=== PATIENT | female | born 1930 | race Caucasian/White ===

== ENCOUNTER 2016-06-01 19:13 | Emergency (ER) | payer OTHER ==
[~2016-06-01] VITALS: Ht 162.6 cm; Wt 84.4 kg
[~2016-06-01 19:13] MED LIST: ALPR0.5T3 PO; CEPH500C3 PO; CETI10 PO; CYMB30CA PO; FENT12DI T-DERMAL; HYDR-3129 PO; LEVO75TA42 PO; MEVA40TA PO; OMEP20TA OR
[2016-06-01 19:18] VITALS: BP 138/77; PULSE 82; RESP 16; TEMP 98.4; O2SAT 93
[2016-06-01] MEDS ORDERED: OMEP20TA PO (19:34)
[2016-06-01] MEDS ORDERED: ALPR1TAB3 PO (19:34)
[2016-06-01] MEDS ORDERED: HYDR-3583 PO (19:34)
[2016-06-01] MEDS ORDERED: FLUT1SPR5 EACH NARE (19:34)
[2016-06-01] MEDS ORDERED: LOVA40TA PO (19:34)
[2016-06-01] MEDS ORDERED: ATEN25TA PO (19:34)
[2016-06-01] MEDS ORDERED: HYDR12.57 PO (19:34)
[2016-06-01] MEDS ORDERED: DULO1CAP3 PO (19:34)
[2016-06-01] MEDS ORDERED: LEVO100T5 PO (19:34)
[2016-06-01] MEDS ORDERED: ZYRT10CA PO (19:34)
--- NOTE | 2016-06-01 19:49 | PD ---
HPI Chief Complaint: ENT Complaint Time Seen by Provider: 19:49 Travel History International Travel<30 days: No Contact w/Intl Traveler<30days: No Traveled to known affect area: No History of Present Illness HPI 86-year-old female presents the emergency department with 3 day history of upper respiratory symptoms including sinus congestion, postnasal drip , sore throat, and cough. Patient states she has been somewhat short of breath with exertion in the past 2 days. She has no history of wheezing or need for inhalers or nebulizers in the past. Patient states she normally gets sinusitis and was treated with azithromycin by her primary care physician. Patient is using Flonase but has had worsening symptoms in the last 3 days. Patient denies fever, chills, or chest pain. She has no significant edema. He has no nausea, vomiting, or diarrhea. Patient is allergic to Betadine, lactose and vancomycin. PFSH Past Medical History Arthritis: Yes Asthma: No Anxiety: Yes Depression: Yes Heart Rhythm Problems: No Cardiovascular Problems: Yes High Cholesterol: Yes Chest Pain: No Congestive Heart Failure: No COPD: No Cerebrovascular Accident: No Diabetes: No Diminished Hearing: Yes Endocrine: Yes Gastrointestinal Disorders: Yes GERD: Yes Genitourinary: No Hypertension: Yes Implanted Vascular Access Dvce: Yes Musculoskeletal: Yes Psychiatric: Yes Reproductive: No Respiratory: Yes Immunizations Current: Yes Migraines: No Seizures: No Sleep Apnea: No Thyroid Disease: Yes Ulcer: No Tetanus Vaccination: Unknown Influenza Vaccination: Yes ?: Not Menopausal: Yes Past Surgical History Abdominal Surgery: Yes (VERONICA) Appendectomy: Yes Body Medical Devices: LAURIE AND SCREWS BACK Cholecystectomy: Yes Gynecologic Surgery: Yes (HYSTERECTOMY) Hysterectomy: Yes Joint Replacement: Yes (DARA KNEE; LEFT HIP;RIGHT HIP 10/2011) Neurologic Surgery: Yes (LUMBAR LAMINECTOMY X 2) Pacemaker: No Other Surgery: Yes (LT ROTATOR CUFF SPINE FUSION BOWEL) Social History Alcohol Use: No Tobacco Use: No Substance Use: No Allergies-Medications (Allergen,Severity, Reaction): Coded Allergies: Betadine (Verified Allergy, Severe, Itching, 06/01/16) Lactose (Verified Allergy, Severe, BLOATING, 06/01/16) Vancomycin (Verified Allergy, Severe, Anaphylaxis, 06/01/16) "GOT HOT ALL OVER" Reported Meds & Prescriptions Reported Meds & Active Scripts Active Reported Flonase Nasal Sulphur (Fluticasone Nasal Sulphur) 50 Mcg/Act Sulphur 50 Mcg EACH NARE BID Atenolol 25 Mg Tab 25 Mg PO DAILY Zyrtec Allergy (Cetirizine HCl) 10 Mg Cap 10 Mg PO DAILY Lovastatin 40 Mg Tab 40 Mg PO DAILY Alprazolam 1 Mg Tab 1 Mg PO HS PRN Duloxetine DR (Duloxetine HCl) 60 Mg Capdr 60 Mg PO BID Omeprazole 20 Mg Tab 20 Mg PO DAILY Levothyroxine (Levothyroxine Sodium) 100 Mcg Tab 100 Mcg PO DAILY Hydrochlorothiazide 12.5 Mg Cap 12.5 Mg PO DAILY Hydrocodone-Acetaminophen 10-325 mg Tab 1 Tab PO BID PRN Review of Systems Except as stated in HPI: all other systems reviewed are Neg General / Constitutional: No: Fever, Chills Eyes: No: Visual changes HENT: Positive: Headaches, Sore Throat, Rhinitis, Rhinorrhea, Congestion, No: Nosebleed, Neck Stiffness, Neck Pain, Ear Discharge, Earache Cardiovascular: No: Chest Pain or Discomfort Respiratory: Positive: Cough, Shortness of Breath, Other (hacking cough noted.) , No: Wheezing, Sneezing, Orthopnea, Hemoptysis, Night Sweats, Pleuritic Pain Gastrointestinal: No: Nausea, Vomiting, Diarrhea, Abdominal Pain Genitourinary: No: Dysuria Musculoskeletal: No: Pain Skin: No Rash Neurologic: No: Weakness Psychiatric: No: Depression Endocrine: No: Polydipsia Hematologic/Lymphatic: No: Easy Bruising Physical Exam Narrative GENERAL: Patient appears in no obvious distress. SKIN: Warm and dry. Normal color. Normal turgor. HEAD: Atraumatic. Normocephalic. EYES: Pupils equal and round. No scleral icterus. No injection or drainage. ENT: No nasal bleeding or discharge. Mucous membranes pink and moist. TMs are clear bilaterally. Patient has moderate sinus tenderness more in the left frontal and maxillary sinuses than the right. Throat has mild erythema postnasal drip and cobblestoning present in the posterior pharynx. Airway is patent. Uvula is midline. NECK: Trachea midline. Supple and nontender. CARDIOVASCULAR: Regular rate and rhythm. No murmurs gallops or rubs. RESPIRATORY: No accessory muscle use. Coarse with mild expiratory wheeze to auscultation. Breath sounds equal bilaterally. GASTROINTESTINAL: Abdomen soft, non-tender, nondistended. Hepatic and splenic margins not palpable. MUSCULOSKELETAL: Extremities without clubbing, cyanosis, or edema. No obvious deformities. NEUROLOGICAL: Awake and alert. No obvious cranial nerve deficits. Motor grossly within normal limits. Five out of 5 muscle strength in the arms and legs. Normal speech. PSYCHIATRIC: Appropriate mood and affect; insight and judgment normal. Data Data Last Documented VS Vital Signs Date Time Temp Pulse Resp B/P Pulse Ox O2 Delivery O2 Flow Rate FiO2 06/01/16 19:18 98.4 82 16 138/77 93 Orders Azithromycin (Zithromax) (06/01/16 20:00) Chest, Pa & Lat (06/01/16 19:53) Albuterol-Ipratropium Neb (Duoneb Neb) (06/01/16 20:00) Resp Mdi/Instruction (06/01/16 20:23) MDM Medical Decision Making Medical Screen Exam Complete: Yes Emergency Medical Condition: Yes Differential Diagnosis Sinusitis. Bronchitis. CHF. Wheezing. Narrative Course Patient is medically stable at time of exam. DuoNeb, chest x-ray PA and lateral, and azithromycin 500 mg by mouth is ordered. Chest x-ray shows no acute process per radiologist. Patient felt symptomatically improved after DuoNeb. Patient was given MDI spacer training. Patient will be discharged home on azithromycin 500 mg daily for the next 5 days. Patient also given Ventolin metered-dose inhaler 2 puffs with spacer every 4-6 hours when necessary. Patient is to continue her Flonase nasal spray 2 sprays each nostril daily. Patient is also given Tessalon Perles 100 mg one every 8 hours when necessary cough. Patient should rest and push fluids and follow-up with her primary care physician in the next week to 10 days. Patient can return to emergency Department with worsening symptoms as needed. Diagnosis Primary Impression: Sinusitis Qualified Code: J01.40 - Acute non-recurrent pansinusitis Additional Impression: Acute wheezy bronchitis Referrals: Primary Care Physician Patient Instructions: Acute Bronchitis (ED), General Instructions, How to Use a Metered-Dose Inhaler and a Spacer (ED), Sinusitis (ED) Additional Instructions: Patient will be discharged home on azithromycin 500 mg daily for the next 5 days. Patient also given Ventolin metered-dose inhaler 2 puffs with spacer every 4-6 hours when necessary. Patient is to continue her Flonase nasal spray 2 sprays each nostril daily. Patient is also given Tessalon Perles 100 mg one every 8 hours when necessary cough. Patient should rest and push fluids and follow-up with her primary care physician in the next week to 10 days. Patient can return to emergency Department with worsening symptoms as needed. Med/Other Pt SpecificInfo: Prescription(s) given Disposition: 01 DISCHARGE HOME Condition: Stable Marvel Castillo Jun 01, 2016 19:49
[2016-06-01] MEDS ORDERED: RESP: ALBUTEROL 2.5 MG/IPRATROPIUM 0.5 MG NEB (SCH) INH ONE (20:00)
[2016-06-01] MEDS ORDERED: AZITHROMYCIN 250 MG TAB PO ONE (20:00)
--- NOTE | 2016-06-01 20:18 | RADHPO ---
EXAM DATE/TIME: 06/01/2016 19:58 [facility] COMPARISON: CHEST PA & LAT, February 27, 2015, 16:11. INDICATIONS : Productive cough and congestion for three days. MEDICAL HISTORY : Hypertension. SURGICAL HISTORY : Left shoulder. ENCOUNTER: Initial ACUITY: 3 days PAIN SCORE: 0/10 LOCATION: Bilateral chest FINDINGS: PA and lateral views of the chest demonstrates hyperinflation which can be seen with CO PD. No infiltrates are seen. Heart is normal in size. Tortuous thoracic aorta. The mediastinal cont ours are unremarkable. Osseous structures are intact. Left humeral prosthesis. Degenerative changes right shoulder. CONCLUSION: Hyperinflation which can be seen with COPD. No acute cardiopulmonary disease an d no evidence for an infiltrate. Morro Shelley MD on June 01, 2016 at 20:16 Board Certified Radiologist. This report was verified electronically.
[2016-06-01] MEDS ORDERED: AZIT500T2 PO (20:29)
[2016-06-01] MEDS ORDERED: VENTAER INH (20:29)
[2016-06-01] MEDS ORDERED: BENZ100 PO (20:38)
== END 2016-06-01 20:42 | disposition home or self-care (01) ==
LOC: PHEFT 19:13
DX: J32.9 Chronic sinusitis, unspecified (principal); J20.9 Acute bronchitis, unspecified; H91.90 Unspecified hearing loss, unspecified ear; K21.9 Gastro-esophageal reflux disease without esophagitis; I10 Essential (primary) hypertension; E78.00 Pure hypercholesterolemia, unspecified
CPT/HCPCS: 71020; 94664; 99283

== ENCOUNTER 2016-11-23 09:26 | Emergency (ER) | payer OTHER ==
[~2016-11-23] VITALS: Ht 162.6 cm; Wt 82.0 kg
[~2016-11-23 09:26] MED LIST changes: -ALPR0.5T3 PO; +ALPR1TAB3 PO; +ATEN25TA PO; +AZIT500T2 PO; +BENZ100 PO; -CEPH500C3 PO; -CETI10 PO; -CYMB30CA PO; +DULO1CAP3 PO; -FENT12DI T-DERMAL; +FLUT1SPR5 EACH NARE; -HYDR-3129 PO; +HYDR-3583 PO; +HYDR12.57 PO; +LEVO100T5 PO; -LEVO75TA42 PO; +LOVA40TA PO; -MEVA40TA PO; -OMEP20TA OR; +OMEP20TA PO; +VENTAER INH; +ZYRT10CA PO
[2016-11-23 09:31] VITALS: BP 111/64; PULSE 71; RESP 16; TEMP 99; O2SAT 95
[2016-11-23] MEDS ORDERED: RANI150T PO (09:53)
[2016-11-23] MEDS ORDERED: FURO20TA PO (09:53)
[2016-11-23] MEDS ORDERED: POTA10CA PO (09:53)
[2016-11-23] MEDS ORDERED: CETI10CH CHEW (09:53)
[2016-11-23] MEDS ORDERED: SERT-129 PO (09:53)
[2016-11-23] MEDS ORDERED: ONDANSETRON HCL 4 MG/2 ML VIAL IV PUSH ONE (10:15)
[2016-11-23] MEDS ORDERED: MORPHINE SULFATE 4 MG/ML INJ IV PUSH ONE (10:15)
[2016-11-23 10:21] LABS: AUTOMATED NEUTROPHIL # 5.1 TH/MM3 (1.8-7.7); BASOPHIL % 0.6 % (0.0-2.0); EOSINOPHIL # 0.1 TH/MM3 (0-0.4); EOSINOPHIL % 1.7 % (0.0-4.0); HEMATOCRIT 36.2 % (35.0-46.0); HEMO FLAGS DIFF FINAL; LYMPH % 17.5 % (9.0-44.0); LYMPHOCYTE # 1.2 TH/MM3 (1.0-4.8); MEAN CELL VOLUME 89.2 FL (80.0-100.0); MEAN CORPUSCULAR HEMOGLOBIN 29.2 PG (27.0-34.0); MEAN CORPUSCULAR HGB CONC 32.8 % (32.0-36.0); MONO % 7.7 % (0.0-8.0); NEUT % 72.5 % (16.0-70.0); PLATELET COUNT 248 TH/MM3 (150-450); RED BLOOD COUNT 4.06 MIL/MM3 (4.00-5.30); RED CELL DISTRIBUTION WIDTH 13.7 % (11.6-17.2); WHITE BLOOD COUNT 6.9 TH/MM3 (4.0-11.0)
[2016-11-23 10:25] VITALS: BP 141/63; PULSE 71; RESP 20; O2SAT 95; O2SAT 96
[2016-11-23 10:29] LABS: CHLORIDE 104 MEQ/L (98-107); POTASSIUM 3.5 MEQ/L (3.5-5.1); SODIUM (NA) 141 MEQ/L (136-145)
--- NOTE | 2016-11-23 10:31 | PD ---
HPI Chief Complaint: Musculoskeletal Complaint Time Seen by Provider: 10:02 Travel History International Travel<30 days: No Contact w/Intl Traveler<30days: No Traveled to known affect area: No History of Present Illness HPI 86-year-old female states she is having left hip pain after she had a fall a couple weeks ago. She states that it had gotten better but yesterday it got acutely worse. She went to her pain management doctor yesterday and was given pain medication but is not helping. She states that she has not had any imaging of that area because it wasn't bothering her as much yesterday. She does state that outpatient she is also getting workup for abdominal pain but given the pain in her hip has not had imaging out of her abdomen as well either. She states they put her on medication to help with her GERD and that is also not helping. She denies any other concurrent complaints at this time. Quality pain is sharp. Severity is moderate. She denies specific modifying factors other than movement. She denies any migration of the pain. PFSH Past Medical History Hx Anticoagulant Therapy: No Arthritis: Yes Asthma: No Anxiety: Yes Depression: Yes Heart Rhythm Problems: No Cardiovascular Problems: Yes High Cholesterol: Yes Chest Pain: No Congestive Heart Failure: No COPD: No Cerebrovascular Accident: No Diabetes: No Diminished Hearing: Yes Endocrine: Yes Gastrointestinal Disorders: Yes GERD: Yes Genitourinary: No Hypertension: Yes Implanted Vascular Access Dvce: Yes Musculoskeletal: Yes Psychiatric: Yes Reproductive: No Respiratory: Yes Immunizations Current: Yes Migraines: No Seizures: No Sleep Apnea: No Thyroid Disease: Yes Ulcer: No Influenza Vaccination: Yes Menopausal: Yes Past Surgical History Abdominal Surgery: Yes (VERONICA) Appendectomy: Yes Body Medical Devices: LAURIE AND SCREWS BACK Cholecystectomy: Yes Gynecologic Surgery: Yes (HYSTERECTOMY) Hysterectomy: Yes Joint Replacement: Yes (DARA KNEE; LEFT HIP;RIGHT HIP 10/2011) Neurologic Surgery: Yes (LUMBAR LAMINECTOMY X 2) Pacemaker: No Other Surgery: Yes (LT ROTATOR CUFF SPINE FUSION BOWEL) Social History Alcohol Use: No Tobacco Use: No Substance Use: No Allergies-Medications (Allergen,Severity, Reaction): Coded Allergies: lactose (Unverified Allergy, Severe, BLOATING, 11/23/16) povidone-iodine (Unverified Allergy, Severe, Itching, 11/23/16) vancomycin (Unverified Allergy, Severe, Anaphylaxis, 11/23/16) "GOT HOT ALL OVER" Reported Meds & Prescriptions Reported Meds & Active Scripts Active Reported Ranitidine (Ranitidine HCl) 150 Mg Tab 150 Mg PO HS Potassium Chloride ER (Potassium Chloride) 10 Meq Cap 10 Meq PO DAILY Sertraline (Sertraline HCl) 100 Mg Tab 100 Mg PO DAILY Furosemide 20 Mg Tab 20 Mg PO DAILY Cetirizine (Cetirizine HCl) 10 Mg Chew 10 Mg CHEW DAILY Atenolol 25 Mg Tab 25 Mg PO DAILY Lovastatin 40 Mg Tab 40 Mg PO DAILY Alprazolam 1 Mg Tab 0.5 Mg PO HS PRN Omeprazole 20 Mg Tab 40 Mg PO DAILY Levothyroxine (Levothyroxine Sodium) 100 Mcg Tab 100 Mcg PO DAILY Hydrocodone-Acetaminophen 10-325 mg Tab 1 Tab PO BID PRN Review of Systems Except as stated in HPI: all other systems reviewed are Neg Physical Exam Narrative GENERAL: Well-nourished, well-developed patient. SKIN: Warm and dry. HEAD: Normocephalic and atraumatic. EYES: No injection or drainage. ENT: No nasal drainage noted. NECK: Supple, trachea midline. CARDIOVASCULAR: Regular rate and rhythm RESPIRATORY: No increased effort. No accessory muscle use. GASTROINTESTINAL: Abdomen soft, mild tenderness diffusely, nondistended. EXTREMITIES: No edema.Pain with palpation of left lateral hip with old ecchymosis, no pain with other joints , neurovascularly intact, no lacerations over, compartments soft. BACK: Nontender without obvious deformity in midline. NEUROLOGICAL: Awake and alert. Moves all extremities and sensory grossly within normal limits. Normal speech. Data Data Last Documented VS Vital Signs Date Time Temp Pulse Resp B/P (MAP) Pulse Ox O2 Delivery O2 Flow Rate FiO2 11/23/16 11:58 73 20 141/63 (89) 95 11/23/16 09:31 99.0 Orders Orders Complete Blood Count With Diff (11/23/16 10:02) Comprehensive Metabolic Panel (11/23/16 10:02) Urinalysis - C+S If Indicated (11/23/16 10:02) Lipase (11/23/16 10:02) Ct Abd/Pel W Iv Contrast(Rout) (11/23/16 ) Iv Access Insert/Monitor (11/23/16 10:02) Oximetry (11/23/16 10:02) Morphine Inj (Morphine Inj) (11/23/16 10:15) Ondansetron Inj (Zofran Inj) (11/23/16 10:15) Hip, Uni(Ap&Lat) Wo Ap Pelvis (11/23/16 ) Iohexol 350 Inj (Omnipaque 350 Inj) (11/23/16 11:28) Ed Discharge Order (11/23/16 12:24) Labs Laboratory Tests Test 11/23/16 10:15 11/23/16 11:00 White Blood Count 6.9 TH/MM3 Red Blood Count 4.06 MIL/MM3 Hemoglobin 11.9 GM/DL Hematocrit 36.2 % Mean Corpuscular Volume 89.2 FL Mean Corpuscular Hemoglobin 29.2 PG Mean Corpuscular Hemoglobin Concent 32.8 % Red Cell Distribution Width 13.7 % Platelet Count 248 TH/MM3 Mean Platelet Volume 8.2 FL Neutrophils (%) (Auto) 72.5 % Lymphocytes (%) (Auto) 17.5 % Monocytes (%) (Auto) 7.7 % Eosinophils (%) (Auto) 1.7 % Basophils (%) (Auto) 0.6 % Neutrophils # (Auto) 5.1 TH/MM3 Lymphocytes # (Auto) 1.2 TH/MM3 Monocytes # (Auto) 0.5 TH/MM3 Eosinophils # (Auto) 0.1 TH/MM3 Basophils # (Auto) 0.0 TH/MM3 CBC Comment DIFF FINAL Differential Comment Blood Urea Nitrogen 7 MG/DL Creatinine 0.58 MG/DL Random Glucose 105 MG/DL Total Protein 6.8 GM/DL Albumin 3.2 GM/DL Calcium Level 8.2 MG/DL Alkaline Phosphatase 104 U/L Aspartate Amino Transf (AST/SGOT) 23 U/L Alanine Aminotransferase (ALT/SGPT) 25 U/L Total Bilirubin 0.7 MG/DL Sodium Level 141 MEQ/L Potassium Level 3.5 MEQ/L Chloride Level 104 MEQ/L Carbon Dioxide Level 28.1 MEQ/L Anion Gap 9 MEQ/L Estimat Glomerular Filtration Rate 99 ML/MIN Lipase 158 U/L Urine Collection Type CLEAN CATCH Urine Color STRAW Urine Turbidity CLEAR Urine pH 6.0 Urine Specific [place] 1.004 Urine Protein NEG mg/dL Urine Glucose (UA) NEG mg/dL Urine Ketones NEG mg/dL Urine Occult Blood NEG Urine Nitrite NEG Urine Bilirubin NEG Urine Leukocyte Esterase NEG Urine RBC 0-3 /hpf Urine Squamous Epithelial Cells 0-5 /hpf Microscopic Urinalysis Comment CULT NOT INDICATED Urine Collection Time 11:00 [facility] Medical Decision Making Medical Screen Exam Complete: Yes Emergency Medical Condition: Yes Medical Record Reviewed: Yes (past history confirmed) Interpretation(s) CBC & BMP Diagram 11/23/16 10:15 Total Protein 6.8, Albumin 3.2 L, Calcium Level 8.2 L, Alkaline Phosphatase 104 , Aspartate Amino Transf (AST/SGOT) 23, Alanine Aminotransferase (ALT/SGPT) 25, Total Bilirubin 0.7 Last 24 hours Impressions Hip X-Ray 11/23/16 0000 Signed Impressions: Service Date/Time: Wednesday, November 23, 2016 10:35 - CONCLUSION: No acute fracture or joint dislocation. Jake Jorge MD Abdomen/Pelvis CT 11/23/16 0000 Signed Impressions: Service Date/Time: Wednesday, November 23, 2016 11:23 - CONCLUSION: 1. Intrahepatic and extra hepatic bili dilatation is worse when compared to a 2012 exam. Common bile duct measures 21 mm. This is out of the range of what is typically seen with relating to the capacitance affect from prior cholecystectomy. I do not see an obstructing mass or stone. 2. Colonic diverticulosis without acute inflammation. 3. Prior cholecystectomy. Sam Lomeli Jr., MD Differential Diagnosis Fracture, stone, gastritis, pancreatitis Narrative Course Will check blood work, urinalysis, CT scan abdominal pelvis, left hip x-ray and dose with morphine and Zofran and reevaluate CT shows dilated bile ducts post cholecystectomy, labs are within normal limits , will discuss with primary for outpatient follow-up. Patient denies any new complaints and states that they are feeling better. all questions answered. Patient knows that follow up is incumbent on them and to return to the emergency room immediately if new or worsening symptoms develop. Patient given strict return precautions, vitals reviewed and are normal, agrees to further workup as an outpatient. Physician Communication Physician Communication dr black states patient can follow in office and she will facilitate outpatient care Diagnosis Primary Impression: Hip pain Qualified Codes: M25.552 - Pain in left hip Additional Impression: Abdominal pain Qualified Codes: R10.9 - Unspecified abdominal pain Patient Instructions: General Instructions Additional Instructions: tylenol as needed, follow with primary tommorrow, return as needed Med/Other Pt SpecificInfo: No Change to Meds Disposition: 01 DISCHARGE HOME Condition: Stable Dawn Campoverde MD Nov 23, 2016 10:31
[2016-11-23 10:33] LABS: ANION GAP 9 MEQ/L (5-15); BICARBONATE 28.1 MEQ/L (21.0-32.0); BLOOD UREA NITROGEN 7 MG/DL (7-18)
[2016-11-23 10:36] LABS: ALT (GPT) 25 U/L (10-53); AST (GOT) 23 U/L (15-37); GLOMERULAR FILTRATION RATE 99 ML/MIN (>89)
[2016-11-23 10:37] LABS: TOTAL BILIRUBIN ADULT 0.7 MG/DL (0.2-1.0)
[2016-11-23 10:38] LABS: ALKALINE PHOSPHATASE 104 U/L (45-117)
--- NOTE | 2016-11-23 10:51 | RADRPT ---
EXAM DATE/TIME: 11/23/2016 10:35 [facility] COMPARISON: No previous studies available for comparison. INDICATIONS : Left hip pain today. MEDICAL HISTORY : Hypertension. Hypercholesterolemia. SURGICAL HISTORY : Appendectomy. Cholecystectomy. Hysterectomy. Lumbar laminectomy. Left rotator cuff repair. Bilateral knee replacement. Bilateral hip replacement. ENCOUNTER: Initial ACUITY: 1 day PAIN SCORE: 6/10 LOCATION: Left hip. FINDINGS: A two view examination of the left hip was performed. There is a left hip prosthesis in place. The mchugh rdware is grossly intact. No acute fracture or joint dislocation. There is some osteopenia the bony s tructures. The soft tissues are grossly unremarkable.. CONCLUSION: No acute fracture or joint dislocation. Jake Jorge MD on November 23, 2016 at 10:49 Board Certified Radiologist. This report was verified electronically.
[2016-11-23 11:13] LABS: BLOOD, URINE NEG (NEG); GLUCOSE,URINE NEG (NEG); KETONE, URINE NEG (NEG); NITRITE,URINE NEG (NEG)
[2016-11-23 11:17] LABS: METHOD OF COLLECTION CLEAN CATCH
[2016-11-23 11:18] LABS: COMMENT (UR) CULT NOT INDICATED; CULTURE IF INDICATED CULT NOT INDICATED; RBC, URINE 0-3 /hpf (0-3); SQUAMOUS EPITHELIAL CELL URINE 0-5 /hpf (0-5); URINE COLOR STRAW (YELLW/STRAW)
[2016-11-23] MEDS ORDERED: IOHEXOL 350 MG/ML 10 ML VIAL (for RAD DIAG) IVCONTRAST ONE (11:28)
--- NOTE | 2016-11-23 11:47 | RADRPT ---
EXAM DATE/TIME: 11/23/2016 11:23 [facility] COMPARISON: CT ABDOMEN & PELVIS W CONTRAST, November 21, 2011, 23:11. INDICATIONS : Fell two weeks ago. Back pain. IV CONTRAST: 95 cc Omnipaque 350 (iohexol) IV ORAL CONTRAST: No oral contrast ingested. RADIATION DOSE: 20.40 CTDIvol (mGy) MEDICAL HISTORY : Gastroesophageal reflux disease. Hypertension. SURGICAL HISTORY : Cholecystectomy. Appendectomy.Hysterectomy. ENCOUNTER: Initial ACUITY: 2 weeks PAIN SCALE: 5/10 LOCATION: abdomen TECHNIQUE: Volumetric scanning of the abdomen and pelvis was performed. Using automated exposure control and ad justment of the mA and/or kV according to patient size, radiation dose was kept as low as reasonably achievable to obtain optimal diagnostic quality images. DICOM format image data is available electro nically for review and comparison. FINDINGS: LOWER LUNGS: The visualized lower lungs are clear. LIVER: There is intrahepatic and extrahepatic biliary dilatation that is more pronounced from the prior stud y. The common bile duct reaches a maximum diameter of 21 mm where previously measured 14 mm. It taper s at the level of the ampulla. No stone or mass observed. Gallbladder surgically absent. Portal vein is patent. SPLEEN: Normal size without lesion. PANCREAS: Within normal limits. KIDNEYS: Normal in size and shape. There is no mass, stone or hydronephrosis. ADRENAL GLANDS: Within normal limits. VASCULAR: There is no aortic aneurysm. BOWEL/MESENTERY: The stomach, small bowel, and colon demonstrate no acute abnormality. There is no free intraperitone al air or fluid. Scattered colonic diverticuli. No acute inflammation. ABDOMINAL WALL: Within normal limits. RETROPERITONEUM: There is no lymphadenopathy. BLADDER: No wall thickening or mass. REPRODUCTIVE: Within normal limits. INGUINAL: There is no lymphadenopathy or hernia. MUSCULOSKELETAL: Bilateral hip prostheses are seen. Degenerative beam hardening artifact obscuring some of the pelvis. A degenerative lumbar spine seen. Posterior fixation at L4-L5. CONCLUSION: 1. Intrahepatic and extra hepatic bili dilatation is worse when compared to a 2012 exam. Common bile duct measures 21 mm. This is out of the range of what is typically seen with relating to the capacita nce affect from prior cholecystectomy. I do not see an obstructing mass or stone. 2. Colonic diverticulosis without acute inflammation. 3. Prior cholecystectomy. Sam Lomeli Jr., MD on November 23, 2016 at 11:35 Board Certified Radiologist. This report was verified electronically.
[2016-11-23 11:58] VITALS: BP 141/63; PULSE 73; RESP 20; O2SAT 95
== END 2016-11-23 12:45 | disposition home or self-care (01) ==
LOC: PHED 09:26
DX: M25.552 Pain in left hip (principal); K21.9 Gastro-esophageal reflux disease without esophagitis; F41.9 Anxiety disorder, unspecified; F32.9 Major depressive disorder, single episode, unspecified; E78.5 Hyperlipidemia, unspecified; I10 Essential (primary) hypertension; Z79.899 Other long term (current) drug therapy; W18.30XA Fall on same level, unspecified, initial encounter
CPT/HCPCS: 73502; 74177; 80053; 81001; 83690; 85025; 96374; 96375; 99285; J2270; J2405; Q9967

== ENCOUNTER → 2016-12-22 | Outpatient (CLI) | payer OTHER ==
[~2016-12-22] MED LIST changes: -AZIT500T2 PO; -BENZ100 PO; +CETI10CH CHEW; -DULO1CAP3 PO; -FLUT1SPR5 EACH NARE; +FURO20TA PO; -HYDR12.57 PO; -OMEP20TA PO; +OMEP20TA93 PO; +POTA10CA PO; +RANI150T PO; +SERT-129 PO; -VENTAER INH; -ZYRT10CA PO
--- NOTE | 2016-12-22 10:24 | RADRPT ---
EXAM DATE/TIME: 12/22/2016 10:10 [facility] COMPARISON: BA SWALLOW W/SPEECH PATHOLOGY, May 25, 2013, 12:53. INDICATIONS : Dysphagia. FLUORO TIME: 1.4 minutes IMAGE COUNT: 1 CONTRAST: Dose as prescribed by speech pathologist. MEDICAL HISTORY : Gastroesophageal reflux disease. Hypertension. SURGICAL HISTORY : Cholecystectomy. Appendectomy.Hysterectomy. ENCOUNTER: Initial ACUITY: 1 year PAIN SCORE: 0/10 LOCATION: Esophagus. FINDINGS: A modified barium swallow was performed with speech pathology. Patient was given a variety of liquids to swallow. Mild laryngeal penetration without aspiration. For a full detailed report, see report by the speech pathologist. CONCLUSION: For a full detailed report, see report by the speech pathologist. Alessio Carrasco MD FACR on December 22, 2016 at 10:22 Board Certified Radiologist. This report was verified electronically.
== END ==
LOC: HRAD 09:48
PROVIDERS: ATTEND Internal Medicine Gastroenterology
DX: E13.10 Other specified diabetes mellitus with ketoacidosis without coma (principal)
CPT/HCPCS: 74230; 92611; G8996; G8997; G8998

== ENCOUNTER 2017-02-05 10:44 | Emergency (ER) | payer OTHER ==
[~2017-02-05] VITALS: Ht 162.6 cm; Wt 81.0 kg
[2017-02-05] MEDS ORDERED: IOHEXOL 350 MG/ML 10 ML VIAL (for RAD DIAG) IVCONTRAST ONE (10:45)
[2017-02-05 10:49] VITALS: BP 142/94; PULSE 105; RESP 16; TEMP 98.7; O2SAT 97
[2017-02-05] MEDS ORDERED: SODIUM CHLOR 0.9% 1000 ML INJ 1,000 ML IV SCH (11:09)
[2017-02-05] MEDS ORDERED: ONDANSETRON HCL 4 MG/2 ML VIAL IVP ONE (11:15)
[2017-02-05] MEDS ORDERED: SODIUM CHLORIDE 0.9% FLUSH 10 ML FLUSH IV FLUSH PRN (11:15)
--- NOTE | 2017-02-05 11:16 | PD ---
HPI Chief Complaint: GI Complaint Time Seen by Provider: 10:58 Travel History International Travel<30 days: No Contact w/Intl Traveler<30days: No Traveled to known affect area: No History of Present Illness HPI This 86-year-old female presents with complaint of abdominal pain and vomiting. She says her symptoms started last night. She has a lifelong history of lactose intolerance and she believes macaroni and cheese may have triggered her symptoms. She does have a history of multiple abdominal surgeries. She has had hysterectomy, appendectomy and cholecystectomy. In November 2011 she had a small bowel obstruction secondary to adhesions. She had surgery at that time. She had esophageal dilatation with Dr. PALMER in December 2016. The pain she is having is crampy in nature. It is intermittent. He has vomited several. Her last bowel movement was about 3 days ago PFSH Past Medical History Hx Anticoagulant Therapy: No Arthritis: Yes Asthma: No Anxiety: Yes Depression: Yes Heart Rhythm Problems: No Cardiovascular Problems: Yes High Cholesterol: Yes Chest Pain: No Congestive Heart Failure: No COPD: No Cerebrovascular Accident: No Diabetes: No Diminished Hearing: Yes Endocrine: Yes Gastrointestinal Disorders: Yes GERD: Yes Genitourinary: No Hypertension: Yes Implanted Vascular Access Dvce: Yes Musculoskeletal: Yes Psychiatric: Yes Reproductive: No Respiratory: Yes Immunizations Current: Yes Migraines: No Seizures: No Sleep Apnea: No Thyroid Disease: Yes Ulcer: No Menopausal: Yes Past Surgical History Abdominal Surgery: Yes (VERONICA) Appendectomy: Yes Body Medical Devices: LAURIE AND SCREWS BACK Cholecystectomy: Yes Gynecologic Surgery: Yes (HYSTERECTOMY) Hysterectomy: Yes Joint Replacement: Yes (DARA KNEE; LEFT HIP;RIGHT HIP 10/2011) Neurologic Surgery: Yes (LUMBAR LAMINECTOMY X 2) Pacemaker: No Other Surgery: Yes (LT ROTATOR CUFF SPINE FUSION BOWEL) Social History Alcohol Use: No Tobacco Use: No Substance Use: No Allergies-Medications (Allergen,Severity, Reaction): Coded Allergies: lactose (Verified Allergy, Severe, BLOATING, 02/05/17) povidone-iodine (Verified Allergy, Severe, Itching, 02/05/17) vancomycin (Verified Allergy, Severe, Anaphylaxis, 02/05/17) "GOT HOT ALL OVER" Reported Meds & Prescriptions Reported Meds & Active Scripts Active Reported Ranitidine (Ranitidine HCl) 150 Mg Tab 150 Mg PO HS Potassium Chloride ER (Potassium Chloride) 10 Meq Cap 10 Meq PO DAILY Sertraline (Sertraline HCl) 100 Mg Tab 100 Mg PO DAILY Furosemide 20 Mg Tab 20 Mg PO DAILY Cetirizine (Cetirizine HCl) 10 Mg Chew 10 Mg CHEW DAILY Atenolol 25 Mg Tab 25 Mg PO DAILY Lovastatin 40 Mg Tab 40 Mg PO DAILY Alprazolam 1 Mg Tab 0.5 Mg PO HS PRN Omeprazole 20 Mg Tab 20 Mg PO DAILY Levothyroxine (Levothyroxine Sodium) 100 Mcg Tab 100 Mcg PO DAILY Hydrocodone-Acetaminophen 10-325 mg Tab 1 Tab PO BID PRN Review of Systems General / Constitutional: No: Fever, Chills Eyes: No: Diploplia HENT: No: Headaches, Vertigo Cardiovascular: No: Chest Pain or Discomfort, Palpitations Respiratory: No: Cough, Shortness of Breath Gastrointestinal: Positive: Nausea, Vomiting, Abdominal Pain, No: Diarrhea Genitourinary: No: Urgency, Frequency Musculoskeletal: No: Myalgias, Arthralgias Skin: No Rash, No Itching Neurologic: No: Weakness, Dizziness Hematologic/Lymphatic: No: Easy Bruising Physical Exam Narrative GENERAL: Well-developed female SKIN: Focused skin assessment warm/dry. HEAD: Atraumatic. Normocephalic. EYES: Pupils equal and round. No scleral icterus. No injection or drainage. ENT: No nasal bleeding or discharge. Mucous membranes pink and moist. NECK: Trachea midline. No JVD. CARDIOVASCULAR: Regular rate and rhythm. No murmur appreciated. RESPIRATORY: No accessory muscle use. Clear to auscultation. Breath sounds equal bilaterally. GASTROINTESTINAL: Abdomen soft and there is some epigastric tenderness. Some mild distention. Bowel sounds present Hepatic and splenic margins not palpable. MUSCULOSKELETAL: No obvious deformities. No clubbing. No cyanosis. No edema. NEUROLOGICAL: Awake and alert. No obvious cranial nerve deficits. Motor grossly within normal limits. Normal speech. PSYCHIATRIC: Appropriate mood and affect; insight and judgment normal. Data Data Last Documented VS Vital Signs Date Time Temp Pulse Resp B/P (MAP) Pulse Ox O2 Delivery O2 Flow Rate FiO2 02/05/17 12:42 90 16 99/70 (80) 96 Room Air 02/05/17 10:49 98.7 Orders Orders Complete Blood Count With Diff (02/05/17 11:09) Comprehensive Metabolic Panel (02/05/17 11:09) Lipase (02/05/17 11:09) Ua Includes Microscopic (02/05/17 11:09) Ct Abd/Pel W Iv Contrast(Rout) (02/05/17 11:09) Iv Access Insert/Monitor (02/05/17 11:09) Ecg Monitoring (02/05/17 11:09) Oximetry (02/05/17 11:09) Ondansetron Inj (Zofran Inj) (02/05/17 11:15) Sodium Chlor 0.9% 1000 Ml Inj (Ns 1000 M (02/05/17 11:09) Sodium Chloride 0.9% Flush (Ns Flush) (02/05/17 11:15) Electrocardiogram (02/05/17 11:09) Iohexol 350 Inj (Omnipaque 350 Inj) (02/05/17 10:45) Pantoprazole Inj (Protonix Inj) (02/05/17 13:30) Al-Mag Hy-Si 40-40-4 Mg/Ml Liq (Mag-Al P (02/05/17 13:30) Labs Laboratory Tests Test 02/05/17 11:25 White Blood Count 9.5 TH/MM3 Red Blood Count 4.74 MIL/MM3 Hemoglobin 13.3 GM/DL Hematocrit 41.5 % Mean Corpuscular Volume 87.5 FL Mean Corpuscular Hemoglobin 28.0 PG Mean Corpuscular Hemoglobin Concent 32.0 % Red Cell Distribution Width 14.4 % Platelet Count 268 TH/MM3 Mean Platelet Volume 8.9 FL Neutrophils (%) (Auto) 91.3 % Lymphocytes (%) (Auto) 5.6 % Monocytes (%) (Auto) 1.8 % Eosinophils (%) (Auto) 0.2 % Basophils (%) (Auto) 1.1 % Neutrophils # (Auto) 8.7 TH/MM3 Lymphocytes # (Auto) 0.5 TH/MM3 Monocytes # (Auto) 0.2 TH/MM3 Eosinophils # (Auto) 0.0 TH/MM3 Basophils # (Auto) 0.1 TH/MM3 CBC Comment AUTO DIFF Differential Comment AUTO DIFF CONFIRMED Urine Collection Type CLEAN CATCH Urine Color YELLOW Urine Turbidity CLEAR Urine pH 5.5 Urine Specific [place] 1.029 Urine Protein NEG mg/dL Urine Glucose (UA) NEG mg/dL Urine Ketones TRACE mg/dL Urine Occult Blood SMALL Urine Nitrite NEG Urine Bilirubin NEG Urine Leukocyte Esterase NEG Urine RBC 0-3 /hpf Microscopic Urinalysis Comment Blood Urea Nitrogen 16 MG/DL Creatinine 0.81 MG/DL Random Glucose 136 MG/DL Total Protein 8.1 GM/DL Albumin 3.9 GM/DL Calcium Level 8.9 MG/DL Alkaline Phosphatase 121 U/L Aspartate Amino Transf (AST/SGOT) 23 U/L Alanine Aminotransferase (ALT/SGPT) 22 U/L Total Bilirubin 1.0 MG/DL Sodium Level 140 MEQ/L Potassium Level 3.6 MEQ/L Chloride Level 104 MEQ/L Carbon Dioxide Level 26.6 MEQ/L Anion Gap 9 MEQ/L Estimat Glomerular Filtration Rate 67 ML/MIN Lipase 167 U/L MDM Medical Decision Making Medical Screen Exam Complete: Yes Emergency Medical Condition: Yes Medical Record Reviewed: Yes Differential Diagnosis Differential includes lactose intolerance, bowel obstruction, nonspecific abdominal pain Narrative Course Hemoglobin is 13 with a white count of 9.5. BUNs is 16 with creatinine of 0.8. A CT of the abdomen and pelvis was obtained. There is hepatic steatosis, mild amount of stool in the colon. Some sigmoid diverticula without inflammatory change. No evidence of bowel obstruction. Patient was reevaluated is complaining of some indigestion. She has been some Mylanta and given intravenous dose of Protonix as she had vomited her omeprazole this morning. She is stable for discharge Diagnosis Primary Impression: Nonspecific abdominal pain Scripts Ondansetron Odt (Zofran Odt) 4 Mg Tab 4 MG SL Q6HR Y for Nausea/Vomiting, #8 TAB 0 Refills Prov: Melvin Arroyo MD 02/05/17 Disposition: 01 DISCHARGE HOME Condition: Stable Melvin Arroyo MD Feb 05, 2017 11:16
[2017-02-05 11:35] VITALS: BP 154/93; PULSE 95; RESP 20; O2SAT 93
[2017-02-05 11:40] LABS: BLOOD, URINE SMALL (NEG); GLUCOSE,URINE NEG (NEG); KETONE, URINE TRACE mg/dL (NEG); NITRITE,URINE NEG (NEG); PH, URINE 5.5 (5.0-8.5); URINE LEUKOCYTE ESTERASE NEG (NEG)
[2017-02-05 11:41] LABS: AUTOMATED NEUTROPHIL # 8.7 TH/MM3 (1.8-7.7); BASOPHIL # 0.1 TH/MM3 (0-0.2); BASOPHIL % 1.1 % (0.0-2.0); EOSINOPHIL % 0.2 % (0.0-4.0); HEMATOCRIT 41.5 % (35.0-46.0); HEMOGLOBIN 13.3 GM/DL (11.6-15.3); LYMPH % 5.6 % (9.0-44.0); LYMPHOCYTE # 0.5 TH/MM3 (1.0-4.8); MEAN CELL VOLUME 87.5 FL (80.0-100.0); MEAN PLATELET VOLUME 8.9 FL (7.0-11.0); MONO % 1.8 % (0.0-8.0); MONOCYTE # 0.2 TH/MM3 (0-0.9); NEUT % 91.3 % (16.0-70.0); PLATELET COUNT 268 TH/MM3 (150-450); RED BLOOD COUNT 4.74 MIL/MM3 (4.00-5.30); RED CELL DISTRIBUTION WIDTH 14.4 % (11.6-17.2); WHITE BLOOD COUNT 9.5 TH/MM3 (4.0-11.0)
[2017-02-05 11:44] LABS: BILIRUBIN, URINE NEG (NEG)
[2017-02-05 11:45] VITALS: O2SAT 93
[2017-02-05 11:47] LABS: URINE COLOR YELLOW (YELLW/STRAW)
[2017-02-05 11:48] LABS: RBC, URINE 0-3 /hpf (0-3)
[2017-02-05 11:52] LABS: CHLORIDE 104 MEQ/L (98-107); SODIUM (NA) 140 MEQ/L (136-145)
[2017-02-05 11:56] LABS: ALBUMIN 3.9 GM/DL (3.4-5.0); BICARBONATE 26.6 MEQ/L (21.0-32.0); BLOOD UREA NITROGEN 16 MG/DL (7-18); CALCIUM 8.9 MG/DL (8.5-10.1); GLUCOSE,RANDOM 136 MG/DL (74-106); LIPASE 167 U/L (73-393)
[2017-02-05 11:59] LABS: ALT (GPT) 22 U/L (10-53); AST (GOT) 23 U/L (15-37); CREATININE 0.81 MG/DL (0.50-1.00); GLOMERULAR FILTRATION RATE 67 ML/MIN (>89)
[2017-02-05 12:01] LABS: TOTAL PROTEIN 8.1 GM/DL (6.4-8.2)
[2017-02-05 12:02] LABS: ALKALINE PHOSPHATASE 121 U/L (45-117)
[2017-02-05 12:30] VITALS: BP 110/81
[2017-02-05 12:42] VITALS: BP 99/70; PULSE 90; RESP 16; O2SAT 96
--- NOTE | 2017-02-05 13:15 | RADRPT ---
EXAM DATE/TIME: 02/05/2017 12:26 [facility] COMPARISON: CT ABDOMEN & PELVIS W CONTRAST, November 23, 2016, 11:23. INDICATIONS : Epigastric pain, nausea, vomiting and constipation. IV CONTRAST: 95 cc Omnipaque 350 (iohexol) IV ORAL CONTRAST: No oral contrast ingested. RADIATION DOSE: 18.71 CTDIvol (mGy) MEDICAL HISTORY : Gastroesophageal reflux disease. Hypertension. SURGICAL HISTORY : Appendectomy. Cholecystectomy.Hysterectomy.Lumbar fusion. ENCOUNTER: Initial ACUITY: 1 day PAIN SCALE: 6/10 LOCATION: Bilateral upper quadrant TECHNIQUE: Volumetric scanning of the abdomen and pelvis was performed. Using automated exposure control and ad justment of the mA and/or kV according to patient size, radiation dose was kept as low as reasonably achievable to obtain optimal diagnostic quality images. DICOM format image data is available electro nically for review and comparison. FINDINGS: LOWER LUNGS: The visualized lower lungs are clear. LIVER: There is diffuse decreased attenuation of the liver. There is intra-and extrahepatic biliary duct dil atation. The common bile duct measures 1.7 cm. The patient status post cholecystectomy. No filling de fect is seen on the CT examination. The ductal dilatation appears similar to slightly less prominent on the current exam. SPLEEN: Normal size without lesion. PANCREAS: Within normal limits. KIDNEYS: Normal in size and shape. There is no mass, stone or hydronephrosis. ADRENAL GLANDS: Within normal limits. VASCULAR: There is no aortic aneurysm. There are a few arterial calcifications present. BOWEL/MESENTERY: There is a mild amount of stool seen throughout the colon. Colonic diverticula are seen in the sigmoi d region. Significant inflammatory change is not seen. ABDOMINAL WALL: Within normal limits. RETROPERITONEUM: There is no lymphadenopathy. BLADDER: No wall thickening or mass. REPRODUCTIVE: No pelvic mass is seen. The patient appears to be status post hysterectomy. INGUINAL: There is no lymphadenopathy or hernia. MUSCULOSKELETAL: There bilateral hip prosthesis in place causing streak artifact in the pelvis. There is surgical hard pierce in the lower lumbar spine. There is degenerative change in the lumbar spine. CONCLUSION: 1. Hepatic steatosis. 2. Dilatation of biliary system likely reflecting a reservoir phenomenon following cholecystectomy. 3. Degenerative and postoperative change in the lumbar spine. 4. Mild amount stool in the colon. 5. Sigmoid diverticula without inflammatory change. Emir Gonzales MD on February 05, 2017 at 13:08 Board Certified Radiologist. This report was verified electronically.
[2017-02-05] MEDS ORDERED: PANTOPRAZOLE SODIUM 40 MG VIAL IV PUSH ONE (13:30)
[2017-02-05] MEDS ORDERED: ALUMINUM/MAGNESIUM/SIMETH 30 ML CUP PO ONE (13:30)
[2017-02-05] MEDS ORDERED: ZOFR4TAB3 SL (14:13)
[2017-02-05 14:30] VITALS: BP 136/75
--- NOTE | 2017-02-05 22:22 | EKG ---
Date Performed: 02/05/2017 Time Performed: 11:18:17 PTAGE: 86 years EKG: Sinus rhythm NORMAL ECG PREVIOUS TRACING : 11/19/2014 20.00 Compared to the previous tracing, rate has decreased DOCTOR: Don Sinclair Interpretating Date/Time 02/05/2017 22:22:16
== END 2017-02-05 14:45 | disposition home or self-care (01) ==
LOC: PHED 10:44
DX: R10.9 Unspecified abdominal pain (principal); K76.0 Fatty (change of) liver, not elsewhere classified; K57.30 Diverticulosis of large intestine without perforation or abscess without bleeding; E73.9 Lactose intolerance, unspecified; F32.9 Major depressive disorder, single episode, unspecified; E78.00 Pure hypercholesterolemia, unspecified; I10 Essential (primary) hypertension
CPT/HCPCS: 74177; 80053; 81001; 83690; 85025; 93005; 96361; 96374; 96375; 99285; C9113; J2405; J7030; Q9967

== ENCOUNTER 2017-03-18 21:02 | Emergency (ER) | payer OTHER ==
[~2017-03-18] VITALS: Ht 165.1 cm; Wt 74.6 kg
[~2017-03-18 21:02] MED LIST changes: +ZOFR4TAB3 SL
[2017-03-18 21:05] VITALS: BP 146/62; PULSE 82; RESP 20; TEMP 99; O2SAT 93
[2017-03-18] MEDS ORDERED: SODIUM CHLOR 0.9% 1000 ML INJ 1,000 ML IV SCH (21:20)
[2017-03-18 21:24] VITALS: O2SAT 96
--- NOTE | 2017-03-18 21:25 | PD ---
HPI Chief Complaint: GI Complaint Time Seen by Provider: 21:11 Travel History International Travel<30 days: No Contact w/Intl Traveler<30days: No Traveled to known affect area: No History of Present Illness HPI The patient is a 89-year-old female that complains of constipation for one week. She was given hematochezia for her irritable bowel syndrome and now has some nausea and headache. She has not been vomiting. She has not manifested any fever. She also states she has nasal congestion. PFSH Past Medical History Hx Anticoagulant Therapy: No Arthritis: Yes Asthma: No Anxiety: Yes Depression: Yes Heart Rhythm Problems: No Cardiovascular Problems: Yes High Cholesterol: Yes Chest Pain: No Congestive Heart Failure: No COPD: No Cerebrovascular Accident: No Diabetes: No Diminished Hearing: Yes Endocrine: Yes Gastrointestinal Disorders: Yes GERD: Yes Genitourinary: No Hypertension: Yes Implanted Vascular Access Dvce: Yes Musculoskeletal: Yes Psychiatric: Yes Reproductive: No Respiratory: Yes Immunizations Current: Yes Migraines: No Seizures: No Sleep Apnea: No Thyroid Disease: Yes Ulcer: No ?: Not Menopausal: Yes Past Surgical History Abdominal Surgery: Yes (VERONICA) Appendectomy: Yes Body Medical Devices: LAURIE AND SCREWS BACK Cholecystectomy: Yes Gynecologic Surgery: Yes (HYSTERECTOMY) Hysterectomy: Yes Joint Replacement: Yes (DARA KNEE; LEFT HIP;RIGHT HIP 10/2011) Neurologic Surgery: Yes (LUMBAR LAMINECTOMY X 2) Pacemaker: No Other Surgery: Yes (LT ROTATOR CUFF SPINE FUSION BOWEL) Social History Alcohol Use: No Tobacco Use: No Substance Use: No Allergies-Medications (Allergen,Severity, Reaction): Coded Allergies: lactose (Verified Allergy, Severe, BLOATING, 03/18/17) povidone-iodine (Verified Allergy, Severe, Itching, 03/18/17) vancomycin (Verified Allergy, Severe, Anaphylaxis, 03/18/17) "GOT HOT ALL OVER" Reported Meds & Prescriptions Reported Meds & Active Scripts Active Zofran Odt (Ondansetron Odt) 4 Mg Tab 4 Mg SL Q6HR PRN Reported Ranitidine (Ranitidine HCl) 150 Mg Tab 150 Mg PO HS Potassium Chloride ER (Potassium Chloride) 10 Meq Cap 10 Meq PO DAILY Sertraline (Sertraline HCl) 100 Mg Tab 100 Mg PO DAILY Furosemide 20 Mg Tab 20 Mg PO DAILY Cetirizine (Cetirizine HCl) 10 Mg Chew 10 Mg CHEW DAILY Atenolol 25 Mg Tab 25 Mg PO DAILY Lovastatin 40 Mg Tab 40 Mg PO DAILY Alprazolam 1 Mg Tab 0.5 Mg PO HS PRN Omeprazole 20 Mg Tab 20 Mg PO DAILY Levothyroxine (Levothyroxine Sodium) 100 Mcg Tab 100 Mcg PO DAILY Hydrocodone-Acetaminophen 10-325 mg Tab 1 Tab PO BID PRN Review of Systems Except as stated in HPI: all other systems reviewed are Neg Physical Exam Narrative GENERAL: The patient is alert, obese, oriented 3 in minimal distress from her abdominal discomfort. Her vital signs show blood pressure 146/62 with oximetry 93% but otherwise are normal. SKIN: Focused skin assessment warm/dry. HEAD: Atraumatic. Normocephalic. EYES: Pupils equal and round. No scleral icterus. No injection or drainage. ENT: No nasal bleeding or discharge. Mucous membranes pink and moist. NECK: Trachea midline. No JVD. CARDIOVASCULAR: Regular rate and rhythm. No murmur appreciated. RESPIRATORY: No accessory muscle use. Clear to auscultation. Breath sounds equal bilaterally. GASTROINTESTINAL: Abdomen soft, non-tender, nondistended. Hepatic and splenic margins not palpable. No guarding or rebound is present. MUSCULOSKELETAL: No obvious deformities. No clubbing. No cyanosis. No edema. NEUROLOGICAL: Awake and alert. No obvious cranial nerve deficits. Motor grossly within normal limits. Normal speech. PSYCHIATRIC: Appropriate mood and affect; insight and judgment normal. RECTAL EXAM: No masses or tenderness, stool is brown. No fecal impactions are noted. Data Data Last Documented VS Vital Signs Date Time Temp Pulse Resp B/P (MAP) Pulse Ox O2 Delivery O2 Flow Rate FiO2 03/18/17 23:22 69 18 134/69 (90) 97 Room Air 03/18/17 21:05 99.0 Orders Orders Complete Blood Count With Diff (03/18/17 21:20) Comprehensive Metabolic Panel (03/18/17 21:20) Lipase (03/18/17 21:20) Urinalysis - C+S If Indicated (03/18/17 21:20) Iv Access Insert/Monitor (03/18/17 21:20) Ecg Monitoring (03/18/17 21:20) Oximetry (03/18/17 21:20) Ondansetron Inj (Zofran Inj) (03/18/17 21:30) Sodium Chlor 0.9% 1000 Ml Inj (Ns 1000 M (03/18/17 21:20) Sodium Chloride 0.9% Flush (Ns Flush) (03/18/17 21:30) Magnesium Citrate Liq (Citroma Liq) (03/18/17 21:30) Labs Laboratory Tests Test 03/18/17 21:45 White Blood Count 12.2 TH/MM3 Red Blood Count 4.31 MIL/MM3 Hemoglobin 12.3 GM/DL Hematocrit 38.6 % Mean Corpuscular Volume 89.4 FL Mean Corpuscular Hemoglobin 28.4 PG Mean Corpuscular Hemoglobin Concent 31.8 % Red Cell Distribution Width 14.8 % Platelet Count 264 TH/MM3 Mean Platelet Volume 8.9 FL Neutrophils (%) (Auto) 74.1 % Lymphocytes (%) (Auto) 16.7 % Monocytes (%) (Auto) 6.6 % Eosinophils (%) (Auto) 2.0 % Basophils (%) (Auto) 0.6 % Neutrophils # (Auto) 9.1 TH/MM3 Lymphocytes # (Auto) 2.0 TH/MM3 Monocytes # (Auto) 0.8 TH/MM3 Eosinophils # (Auto) 0.2 TH/MM3 Basophils # (Auto) 0.1 TH/MM3 CBC Comment DIFF FINAL Differential Comment Urine Color YELLOW Urine Turbidity CLEAR Urine pH 6.5 Urine Specific [place] 1.009 Urine Protein NEG mg/dL Urine Glucose (UA) NEG mg/dL Urine Ketones NEG mg/dL Urine Occult Blood NEG Urine Nitrite NEG Urine Bilirubin NEG Urine Leukocyte Esterase TRACE Urine RBC 0-2 /hpf Urine WBC 0-2 /hpf Urine Squamous Epithelial Cells 0-5 /hpf Urine Bacteria NONE /hpf Microscopic Urinalysis Comment CULT NOT INDICATED Blood Urea Nitrogen 7 MG/DL Creatinine 0.86 MG/DL Random Glucose 106 MG/DL Total Protein 7.5 GM/DL Albumin 3.9 GM/DL Calcium Level 8.6 MG/DL Alkaline Phosphatase 111 U/L Aspartate Amino Transf (AST/SGOT) 17 U/L Alanine Aminotransferase (ALT/SGPT) 16 U/L Total Bilirubin 0.7 MG/DL Sodium Level 135 MEQ/L Potassium Level 3.8 MEQ/L Chloride Level 100 MEQ/L Carbon Dioxide Level 28.9 MEQ/L Anion Gap 6 MEQ/L Estimat Glomerular Filtration Rate 63 ML/MIN Lipase 175 U/L [facility] Medical Decision Making Medical Screen Exam Complete: Yes Emergency Medical Condition: Yes Medical Record Reviewed: Yes Interpretation(s) The urine shows trace leukocyte Estrace but is otherwise normal and culture is not indicated. The complete metabolic profile shows a sodium of 135, GFR 63 but is otherwise normal. The lipase is normal. The CBC shows a white count of 12,300 but is otherwise unremarkable. Differential Diagnosis Constipation, colitis, urinary tract infection, electrolyte imbalance Narrative Course It is now 1149 and the patient has passed a large bowel movement and feels much better. The patient will be able to go home now. Diagnosis Primary Impression: Constipation Additional Impression: Irritable bowel syndrome Additional Instructions: Follow-up with with her primary care physician next week. Drink plenty of liquids. Will give the Zofran for nausea should you need it. It is one tablet every 6 hours as needed. Med/Other Pt SpecificInfo: Prescription(s) given Scripts Ondansetron (Zofran) 4 Mg Tab 4 MG PO Q6HR Y for NAUSEA OR VOMITING, #28 TAB 0 Refills Prov: Ruiz Beal MD 03/18/17 Disposition: 01 DISCHARGE HOME Condition: Stable Ruiz Beal MD Mar 18, 2017 21:25
[2017-03-18] MEDS ORDERED: ONDANSETRON HCL 4 MG/2 ML VIAL IVP ONE (21:30)
[2017-03-18] MEDS ORDERED: MAGNESIUM CITRATE SOLN 300 ML BTL PO ONE (21:30)
[2017-03-18] MEDS ORDERED: SODIUM CHLORIDE 0.9% FLUSH 10 ML FLUSH IV FLUSH PRN (21:30)
[2017-03-18 21:53] LABS: BILIRUBIN, URINE NEG (NEG); BLOOD, URINE NEG (NEG); GLUCOSE,URINE NEG (NEG); KETONE, URINE NEG (NEG); NITRITE,URINE NEG (NEG); PH, URINE 6.5 (5.0-8.5); URINE LEUKOCYTE ESTERASE TRACE (NEG)
[2017-03-18 21:55] LABS: AUTOMATED NEUTROPHIL # 9.1 TH/MM3 (1.8-7.7); BASOPHIL # 0.1 TH/MM3 (0-0.2); BASOPHIL % 0.6 % (0.0-2.0); EOSINOPHIL # 0.2 TH/MM3 (0-0.4); HEMATOCRIT 38.6 % (35.0-46.0); HEMOGLOBIN 12.3 GM/DL (11.6-15.3); LYMPH % 16.7 % (9.0-44.0); MEAN CELL VOLUME 89.4 FL (80.0-100.0); MEAN CORPUSCULAR HEMOGLOBIN 28.4 PG (27.0-34.0); MEAN CORPUSCULAR HGB CONC 31.8 % (32.0-36.0); MEAN PLATELET VOLUME 8.9 FL (7.0-11.0); MONO % 6.6 % (0.0-8.0); MONOCYTE # 0.8 TH/MM3 (0-0.9); NEUT % 74.1 % (16.0-70.0); PLATELET COUNT 264 TH/MM3 (150-450); RED BLOOD COUNT 4.31 MIL/MM3 (4.00-5.30); RED CELL DISTRIBUTION WIDTH 14.8 % (11.6-17.2); WHITE BLOOD COUNT 12.2 TH/MM3 (4.0-11.0)
[2017-03-18 22:01] LABS: URINE COLOR YELLOW (YELLW/STRAW)
[2017-03-18 22:02] LABS: RBC, URINE 0-2 /hpf (0-3); SQUAMOUS EPITHELIAL CELL URINE 0-5 /hpf (0-5); WBC, URINE 0-2 /hpf (0-5)
[2017-03-18 22:03] LABS: CHLORIDE 100 MEQ/L (98-107); SODIUM (NA) 135 MEQ/L (136-145)
[2017-03-18 22:07] LABS: ALBUMIN 3.9 GM/DL (3.4-5.0); BICARBONATE 28.9 MEQ/L (21.0-32.0); BLOOD UREA NITROGEN 7 MG/DL (7-18); CALCIUM 8.6 MG/DL (8.5-10.1); GLUCOSE,RANDOM 106 MG/DL (74-106)
[2017-03-18 22:10] LABS: ALT (GPT) 16 U/L (10-53); AST (GOT) 17 U/L (15-37); CREATININE 0.86 MG/DL (0.50-1.00); GLOMERULAR FILTRATION RATE 63 ML/MIN (>89)
[2017-03-18 22:12] LABS: TOTAL BILIRUBIN ADULT 0.7 MG/DL (0.2-1.0); TOTAL PROTEIN 7.5 GM/DL (6.4-8.2)
[2017-03-18 22:13] LABS: ALKALINE PHOSPHATASE 111 U/L (45-117)
[2017-03-18 22:25] VITALS: BP 130/69; PULSE 61; RESP 18; O2SAT 96
[2017-03-18 23:22] VITALS: BP 134/69; PULSE 69; RESP 18; O2SAT 97
[2017-03-18] MEDS ORDERED: ZOFR4TAB PO (23:51)
== END 2017-03-19 00:03 | disposition home or self-care (01) ==
LOC: PHED 21:02
DX: K58.9 Irritable bowel syndrome, unspecified (principal); F32.9 Major depressive disorder, single episode, unspecified; E78.00 Pure hypercholesterolemia, unspecified; I10 Essential (primary) hypertension; K21.9 Gastro-esophageal reflux disease without esophagitis
CPT/HCPCS: 80053; 81001; 83690; 85025; 96360; 99284; J2405; J7030